=== PATIENT | male | born 1950 | race Caucasian/White ===

== ENCOUNTER 2016-04-11 17:49 | Inpatient (IN) | payer MEDICARE, OTHER ==
[~2016-04-11] VITALS: Ht 177.8 cm; Wt 60.8 kg
[~2016-04-11 17:49] MED LIST: AMOX1TAB64 PO; ASPI-496 PO; CYAN100028 PO; FLUT1AER INH; FLUT1BLS INH; GUAI100L11 PO; GUAI200T3 PO; IPRA4AER INH; LABE100T3 PO; LEVO500S PO; LISI5TAB7 PO; NICO1PAT10 TD; PRED20TA PO
[2016-04-11 18:29] LABS: HEMOGLOBIN 16.5 g/dL (13.7-18.0)
[2016-04-11 18:42] LABS: ASPARTATE AMINO TRANSFERASE 24 U/L (15-37); BLOOD UREA NITROGEN 8 mg/dL (7-18)
[2016-04-11 18:51] LABS: IS PT STATUS REG ER OR PRE ER? YES
[2016-04-11] MEDS ORDERED: SODIUM CHLORIDE 0.9% 1,000 ML IV ONE (21:18)
[2016-04-11 23:00] VITALS: BP 130/82
[2016-04-12] MEDS ORDERED: ACETAMINOPHEN 325 MG TABLET PO PRN
[2016-04-12] MEDS ORDERED: BISACODYL 10 MG SUPP PR PRN
[2016-04-12] MEDS ORDERED: NICOTINE 14MG/24 HR PATCH.TD24 TD SCH
[2016-04-12] MEDS ORDERED: NICOTINE 21 MG/24 HR PATCH.TD24 TD ONE
[2016-04-12] MEDS ORDERED: PROMETHAZINE 25 MG/ML, 1ML IM PRN
[2016-04-12] MEDS ORDERED: ONDANSETRON 2MG/ML, 2ML IVP PRN
[2016-04-12] MEDS ORDERED: POLYETHYLENE GLYCOL 17 GM PACKET PO PRN
[2016-04-12 00:32] LABS: BLOOD UREA NITROGEN 6 mg/dL (7-18)
[2016-04-12 00:44] LABS: IS PT STATUS REG ER OR PRE ER? NO
[2016-04-12] MEDS: OXYcodone IR 5MG TABLET PO PRN ×4 (00:46→17:44)
[2016-04-12] MEDS: ENOXAPARIN 40 MG/0.4 ML SQ SCH (00:46)
[2016-04-12] MEDS ORDERED: ALBUTEROL/IPRATROPIUM 2.5MG/0.5MG, 3 ML NPPB PRN (01:00)
[2016-04-12] MEDS ORDERED: THIAMINE 200 MG in SODIUM CHLORIDE 0.9% 50 ML IV ONE (01:30)
[2016-04-12] MEDS ORDERED: LORazepam 1MG TABLET PO PRN ×4 (01:30)
[2016-04-12] MEDS ORDERED: POTASSIUM CHLORIDE 20 MEQ in DEXTROSE 5% 1,000 ML IV SCH (01:30)
[2016-04-12] MEDS: CHLORDIAZEPOXIDE 25 MG CAPSULE PO SCH ×6 (01:40→20:05)
[2016-04-12 02:00] VITALS: BP 124/71
[2016-04-12 04:48] LABS: HEMOGLOBIN 15.9 g/dL (13.7-18.0)
[2016-04-12] MEDS: DIPHENHYDRAMINE/ZINC CRM 2%, 30GM TP PRN (04:49)
[2016-04-12 04:57] LABS: BLOOD UREA NITROGEN 8 mg/dL (7-18)
[2016-04-12 05:00] LABS: ASPARTATE AMINO TRANSFERASE 21 U/L (15-37)
[2016-04-12 07:08] VITALS: BP 107/68
[2016-04-12] MEDS ORDERED: FLUTICASONE/VILANTEROL 200-25MCG/INH INH SCH (09:00)
[2016-04-12 09:36] LABS: BLOOD UREA NITROGEN 8 mg/dL (7-18)
[2016-04-12] MEDS: THIAMINE 100MG TABLET PO SCH (09:36)
[2016-04-12] MEDS: MULTIVITAMIN 1 TABLET PO SCH (09:36)
[2016-04-12] MEDS: ASPIRIN 81 MG TABLET EC PO SCH (09:36)
[2016-04-12] MEDS: LABETALOL 100 MG TABLET PO SCH ×2 (09:36→20:05)
[2016-04-12] MEDS: FOLIC ACID 1 MG TABLET PO SCH (09:36)
[2016-04-12] MEDS: FLUTICASONE/VILANTEROL 200-25MCG/INH INH SCH (10:46)
[2016-04-12] MEDS: SODIUM CHLORIDE 0.9% 1,000 ML IV SCH ×2 (12:03→20:11)
[2016-04-12] MEDS ORDERED: LORazepam 1MG TABLET ONE ×2 (12:11→19:56)
[2016-04-12] MEDS: LORazepam 0.5MG TABLET PO PRN ×2 (12:13→20:05)
[2016-04-12 13:22] VITALS: BP 110/68
[2016-04-12 20:00] VITALS: BP 119/72
[2016-04-13 02:00] VITALS: BP 120/70
[2016-04-13] MEDS: SODIUM CHLORIDE 0.9% 1,000 ML IV SCH (03:30)
[2016-04-13 05:15] LABS: HEMOGLOBIN 13.7 g/dL (13.7-18.0)
[2016-04-13 05:24] LABS: BLOOD UREA NITROGEN 12 mg/dL (7-18)
[2016-04-13] MEDS: CHLORDIAZEPOXIDE 25 MG CAPSULE PO SCH ×4 (05:58→21:23)
[2016-04-13] MEDS: ENOXAPARIN 40 MG/0.4 ML SQ SCH (06:02)
[2016-04-13 06:59] VITALS: BP 135/78
[2016-04-13] MEDS: FLUTICASONE/VILANTEROL 200-25MCG/INH INH SCH (09:29)
[2016-04-13] MEDS: THIAMINE 100MG TABLET PO SCH (09:29)
[2016-04-13] MEDS: LABETALOL 100 MG TABLET PO SCH ×2 (09:29→21:23)
[2016-04-13] MEDS: MULTIVITAMIN 1 TABLET PO SCH (09:29)
[2016-04-13] MEDS: FOLIC ACID 1 MG TABLET PO SCH (09:29)
[2016-04-13] MEDS: ASPIRIN 81 MG TABLET EC PO SCH (09:29)
[2016-04-13] MEDS: OXYcodone IR 5MG TABLET PO PRN (09:30)
[2016-04-13] MEDS: PIPERONYL BUTOXIDE/PYRETHRINS SHAMPOO TP SCH (10:00)
[2016-04-13 12:59] VITALS: BP 143/82
[2016-04-13 13:30] VITALS: BP 103/58
[2016-04-13] MEDS: NICOTINE 14MG/24 HR PATCH.TD24 TD SCH (17:08)
[2016-04-13 20:45] VITALS: BP 146/70
[2016-04-14] MEDS: SODIUM CHLORIDE 0.9% 1,000 ML IV SCH ×4 (00:34→21:20)
[2016-04-14] MEDS: DIPHENHYDRAMINE/ZINC CRM 2%, 30GM TP PRN ×2 (00:34→21:20)
[2016-04-14 01:17] VITALS: BP 140/76
[2016-04-14] MEDS: CHLORDIAZEPOXIDE 25 MG CAPSULE PO SCH ×2 (04:52→11:54)
[2016-04-14] MEDS: ENOXAPARIN 40 MG/0.4 ML SQ SCH (04:54)
[2016-04-14 05:06] LABS: HEMOGLOBIN 13.5 g/dL (13.7-18.0)
[2016-04-14 05:15] LABS: BLOOD UREA NITROGEN 11 mg/dL (7-18)
[2016-04-14 08:28] VITALS: BP 135/78
[2016-04-14] MEDS ORDERED: PIPERONYL BUTOXIDE/PYRETHRINS SHAMPOO TP SCH (10:00)
[2016-04-14] MEDS: ASPIRIN 81 MG TABLET EC PO SCH (10:10)
[2016-04-14] MEDS: THIAMINE 100MG TABLET PO SCH (10:10)
[2016-04-14] MEDS: FOLIC ACID 1 MG TABLET PO SCH (10:10)
[2016-04-14] MEDS: MULTIVITAMIN 1 TABLET PO SCH (10:10)
[2016-04-14] MEDS: FLUTICASONE/VILANTEROL 200-25MCG/INH INH SCH (10:10)
[2016-04-14] MEDS: LABETALOL 100 MG TABLET PO SCH ×2 (10:10→21:18)
[2016-04-14] MEDS: OXYcodone IR 5MG TABLET PO PRN (10:11)
[2016-04-14] MEDS ORDERED: GUAIFENESIN/DM 200-20MG, 10ML UDC PO PRN (14:30)
[2016-04-14 15:23] VITALS: BP 140/71
[2016-04-14] MEDS: NICOTINE 14MG/24 HR PATCH.TD24 TD SCH (17:48)
[2016-04-14 18:51] VITALS: BP 158/87
[2016-04-15 01:56] VITALS: BP 117/62
[2016-04-15 05:07] LABS: BLOOD UREA NITROGEN 8 mg/dL (7-18)
[2016-04-15] MEDS: ENOXAPARIN 40 MG/0.4 ML SQ SCH (05:15)
[2016-04-15 08:20] VITALS: BP 161/83
[2016-04-15] MEDS: FLUTICASONE/VILANTEROL 200-25MCG/INH INH SCH (08:26)
[2016-04-15] MEDS: FOLIC ACID 1 MG TABLET PO SCH (08:27)
[2016-04-15] MEDS: LABETALOL 100 MG TABLET PO SCH ×2 (08:27→22:39)
[2016-04-15] MEDS: MULTIVITAMIN 1 TABLET PO SCH (08:27)
[2016-04-15] MEDS: ASPIRIN 81 MG TABLET EC PO SCH (08:27)
[2016-04-15] MEDS: THIAMINE 100MG TABLET PO SCH (08:27)
[2016-04-15] MEDS ORDERED: SODIUM CHLORIDE 0.9% 1,000 ML IV SCH (11:30)
[2016-04-15 12:58] VITALS: BP 144/85
[2016-04-15] MEDS: NICOTINE 14MG/24 HR PATCH.TD24 TD SCH (16:00)
[2016-04-15 18:53] VITALS: BP 136/76
[2016-04-15 22:38] VITALS: BP 160/83
[2016-04-16 01:41] VITALS: BP 155/90
[2016-04-16] MEDS: ENOXAPARIN 40 MG/0.4 ML SQ SCH (05:37)
[2016-04-16 05:44] LABS: HEMOGLOBIN 13.5 g/dL (13.7-18.0)
[2016-04-16 06:02] LABS: BLOOD UREA NITROGEN 9 mg/dL (7-18)
[2016-04-16 08:01] VITALS: BP 129/71
[2016-04-16] MEDS: MULTIVITAMIN 1 TABLET PO SCH (08:05)
[2016-04-16] MEDS: FLUTICASONE/VILANTEROL 200-25MCG/INH INH SCH (08:05)
[2016-04-16] MEDS: THIAMINE 100MG TABLET PO SCH (08:05)
[2016-04-16] MEDS: ASPIRIN 81 MG TABLET EC PO SCH (08:05)
[2016-04-16] MEDS: FOLIC ACID 1 MG TABLET PO SCH (08:05)
[2016-04-16] MEDS: LABETALOL 100 MG TABLET PO SCH ×2 (08:15→21:00)
[2016-04-16] MEDS: SODIUM CHLORIDE 1 GM TABLET PO SCH ×2 (10:27→21:13)
[2016-04-16] MEDS: AcetaZOLAMIDE INJ 500 MG IVPush SCH (10:27)
[2016-04-16 14:40] VITALS: BP 99/48
[2016-04-16] MEDS: NICOTINE 14MG/24 HR PATCH.TD24 TD SCH (16:00)
[2016-04-16 20:04] VITALS: BP 128/66
[2016-04-17 04:04] VITALS: BP 110/51
[2016-04-17] MEDS: ENOXAPARIN 40 MG/0.4 ML SQ SCH (05:38)
[2016-04-17 06:32] LABS: BLOOD UREA NITROGEN 12 mg/dL (7-18)
[2016-04-17 07:39] VITALS: BP 144/82
[2016-04-17] MEDS: OXYcodone IR 5MG TABLET PO PRN (08:42)
[2016-04-17] MEDS: MULTIVITAMIN 1 TABLET PO SCH (08:43)
[2016-04-17] MEDS: LABETALOL 100 MG TABLET PO SCH ×2 (08:43→20:09)
[2016-04-17] MEDS: THIAMINE 100MG TABLET PO SCH (08:43)
[2016-04-17] MEDS: AcetaZOLAMIDE INJ 500 MG IVPush SCH (08:43)
[2016-04-17] MEDS: SODIUM CHLORIDE 1 GM TABLET PO SCH ×2 (08:43→20:08)
[2016-04-17] MEDS: FLUTICASONE/VILANTEROL 200-25MCG/INH INH SCH (08:43)
[2016-04-17] MEDS: FOLIC ACID 1 MG TABLET PO SCH (08:43)
[2016-04-17] MEDS: ASPIRIN 81 MG TABLET EC PO SCH (08:43)
[2016-04-17 12:33] VITALS: BP 131/66
[2016-04-17] MEDS: NICOTINE 14MG/24 HR PATCH.TD24 TD SCH (16:43)
[2016-04-17 18:56] VITALS: BP 117/67
[2016-04-18 02:07] VITALS: BP 109/64
[2016-04-18] MEDS: ENOXAPARIN 40 MG/0.4 ML SQ SCH (05:16)
[2016-04-18] MEDS: OXYcodone IR 5MG TABLET PO PRN (05:26)
[2016-04-18 08:21] VITALS: BP 119/75
[2016-04-18] MEDS: FLUTICASONE/VILANTEROL 200-25MCG/INH INH SCH (09:00)
[2016-04-18] MEDS: LABETALOL 100 MG TABLET PO SCH ×2 (09:45→20:37)
[2016-04-18] MEDS: FOLIC ACID 1 MG TABLET PO SCH (09:45)
[2016-04-18] MEDS: MULTIVITAMIN 1 TABLET PO SCH (09:45)
[2016-04-18] MEDS: AcetaZOLAMIDE INJ 500 MG IVPush SCH (09:45)
[2016-04-18] MEDS: SODIUM CHLORIDE 1 GM TABLET PO SCH (09:45)
[2016-04-18] MEDS: ASPIRIN 81 MG TABLET EC PO SCH (09:45)
[2016-04-18] MEDS: THIAMINE 100MG TABLET PO SCH (09:45)
[2016-04-18] MEDS ORDERED: MULT1TAB60 PO (12:43)
[2016-04-18] MEDS ORDERED: THIA100T6 PO (12:43)
[2016-04-18] MEDS ORDERED: FOLI-17 PO (12:43)
[2016-04-18 13:01] VITALS: BP 116/65
[2016-04-18] MEDS: NICOTINE 14MG/24 HR PATCH.TD24 TD SCH (16:20)
[2016-04-18] MEDS: ATORVASTATIN 40 MG TABLET PO SCH (20:37)
[2016-04-18 21:05] VITALS: BP 141/84
[2016-04-19 04:12] VITALS: BP 153/79
[2016-04-19 05:06] LABS: HEMOGLOBIN 14.4 g/dL (13.7-18.0)
[2016-04-19 05:10] LABS: BLOOD UREA NITROGEN 14 mg/dL (7-18)
[2016-04-19] MEDS: ENOXAPARIN 40 MG/0.4 ML SQ SCH (06:32)
[2016-04-19 08:57] VITALS: BP 112/66
[2016-04-19] MEDS: FLUTICASONE/VILANTEROL 200-25MCG/INH INH SCH (08:58)
[2016-04-19] MEDS: THIAMINE 100MG TABLET PO SCH (08:58)
[2016-04-19] MEDS: FOLIC ACID 1 MG TABLET PO SCH (08:59)
[2016-04-19] MEDS: ASPIRIN 81 MG TABLET EC PO SCH (08:59)
[2016-04-19] MEDS: MULTIVITAMIN 1 TABLET PO SCH (08:59)
[2016-04-19] MEDS: LABETALOL 100 MG TABLET PO SCH ×2 (08:59→20:47)
[2016-04-19 09:45] VITALS: BP 133/76
[2016-04-19 12:35] VITALS: BP 115/56
[2016-04-19] MEDS: NICOTINE 14MG/24 HR PATCH.TD24 TD SCH (16:17)
[2016-04-19 19:03] VITALS: BP 133/63
[2016-04-19] MEDS: ATORVASTATIN 40 MG TABLET PO SCH (20:47)
[2016-04-20 01:50] VITALS: BP 131/65
[2016-04-20] MEDS: ENOXAPARIN 40 MG/0.4 ML SQ SCH (06:35)
[2016-04-20] MEDS: THIAMINE 100MG TABLET PO SCH (08:02)
[2016-04-20] MEDS: MULTIVITAMIN 1 TABLET PO SCH (08:02)
[2016-04-20] MEDS: LABETALOL 100 MG TABLET PO SCH ×2 (08:02→21:21)
[2016-04-20] MEDS: FOLIC ACID 1 MG TABLET PO SCH (08:03)
[2016-04-20] MEDS: FLUTICASONE/VILANTEROL 200-25MCG/INH INH SCH (08:03)
[2016-04-20] MEDS: ASPIRIN 81 MG TABLET EC PO SCH (08:03)
[2016-04-20 08:08] VITALS: BP 144/60
[2016-04-20] MEDS: PIPERONYL BUTOXIDE/PYRETHRINS SHAMPOO TP SCH (08:25)
[2016-04-20] MEDS ORDERED: PIPERONYL BUTOXIDE/PYRETHRINS SHAMPOO TP SCH (09:30)
[2016-04-20 12:44] VITALS: BP 131/78
[2016-04-20] MEDS: NICOTINE 14MG/24 HR PATCH.TD24 TD SCH (16:48)
[2016-04-20 19:50] VITALS: BP 131/74
[2016-04-20 19:55] VITALS: BP 131/74
[2016-04-20] MEDS: ATORVASTATIN 40 MG TABLET PO SCH (21:21)
[2016-04-20] MEDS: OXYcodone IR 5MG TABLET PO PRN (21:32)
[2016-04-20 23:23] VITALS: BP 139/77
[2016-04-21 03:50] VITALS: BP 147/77
[2016-04-21] MEDS: ENOXAPARIN 40 MG/0.4 ML SQ SCH (05:43)
[2016-04-21 07:53] VITALS: BP 132/74
[2016-04-21] MEDS: FLUTICASONE/VILANTEROL 200-25MCG/INH INH SCH (08:24)
[2016-04-21] MEDS: THIAMINE 100MG TABLET PO SCH (08:25)
[2016-04-21] MEDS: AMLODIPINE 5 MG TABLET PO SCH (08:25)
[2016-04-21] MEDS: MULTIVITAMIN 1 TABLET PO SCH (08:25)
[2016-04-21] MEDS: ASPIRIN 81 MG TABLET EC PO SCH (08:25)
[2016-04-21] MEDS: FOLIC ACID 1 MG TABLET PO SCH (08:25)
[2016-04-21] MEDS: LABETALOL 100 MG TABLET PO SCH ×2 (08:27→21:47)
[2016-04-21 14:00] VITALS: BP 142/78
[2016-04-21 20:20] VITALS: BP 118/68
[2016-04-21] MEDS: ATORVASTATIN 40 MG TABLET PO SCH (21:47)
[2016-04-21] MEDS: OXYcodone IR 5MG TABLET PO PRN (21:47)
[2016-04-21] MEDS: NICOTINE 14MG/24 HR PATCH.TD24 TD SCH (21:47)
[2016-04-21 21:48] VITALS: BP 125/64
[2016-04-22 02:50] VITALS: BP 150/67
[2016-04-22] MEDS: ENOXAPARIN 40 MG/0.4 ML SQ SCH (06:04)
[2016-04-22 07:07] VITALS: BP 165/74
[2016-04-22] MEDS: FOLIC ACID 1 MG TABLET PO SCH (08:08)
[2016-04-22] MEDS: FLUTICASONE/VILANTEROL 200-25MCG/INH INH SCH (08:08)
[2016-04-22] MEDS: AMLODIPINE 5 MG TABLET PO SCH (08:08)
[2016-04-22] MEDS: ASPIRIN 81 MG TABLET EC PO SCH (08:08)
[2016-04-22] MEDS: MULTIVITAMIN 1 TABLET PO SCH (08:08)
[2016-04-22] MEDS: THIAMINE 100MG TABLET PO SCH (08:09)
[2016-04-22] MEDS: LABETALOL 100 MG TABLET PO SCH ×2 (08:09→21:19)
[2016-04-22 12:50] VITALS: BP 134/72
[2016-04-22 19:24] VITALS: BP 127/71
[2016-04-22] MEDS: NICOTINE 14MG/24 HR PATCH.TD24 TD SCH (21:19)
[2016-04-22] MEDS: ATORVASTATIN 40 MG TABLET PO SCH (21:19)
[2016-04-22] MEDS: OXYcodone IR 5MG TABLET PO PRN (21:25)
[2016-04-23 02:51] VITALS: BP 160/87
[2016-04-23] MEDS: ENOXAPARIN 40 MG/0.4 ML SQ SCH (05:05)
[2016-04-23 06:57] VITALS: BP 155/71
[2016-04-23] MEDS: FOLIC ACID 1 MG TABLET PO SCH (09:27)
[2016-04-23] MEDS: THIAMINE 100MG TABLET PO SCH (09:27)
[2016-04-23] MEDS: FLUTICASONE/VILANTEROL 200-25MCG/INH INH SCH (09:27)
[2016-04-23] MEDS: AMLODIPINE 5 MG TABLET PO SCH (09:27)
[2016-04-23] MEDS: ASPIRIN 81 MG TABLET EC PO SCH (09:27)
[2016-04-23] MEDS: MULTIVITAMIN 1 TABLET PO SCH (09:27)
[2016-04-23] MEDS: LABETALOL 100 MG TABLET PO SCH ×2 (09:27→22:56)
[2016-04-23 12:50] VITALS: BP 144/76
[2016-04-23 19:08] VITALS: BP 122/62
[2016-04-23] MEDS: ATORVASTATIN 40 MG TABLET PO SCH (22:56)
[2016-04-23] MEDS: NICOTINE 14MG/24 HR PATCH.TD24 TD SCH (22:56)
[2016-04-24 01:33] VITALS: BP 152/67
[2016-04-24] MEDS: OXYcodone IR 5MG TABLET PO PRN (04:17)
[2016-04-24] MEDS: ENOXAPARIN 40 MG/0.4 ML SQ SCH (05:54)
[2016-04-24 07:20] VITALS: BP 162/53
[2016-04-24] MEDS: FLUTICASONE/VILANTEROL 200-25MCG/INH INH SCH (08:38)
[2016-04-24] MEDS: MULTIVITAMIN 1 TABLET PO SCH (08:38)
[2016-04-24] MEDS: LABETALOL 100 MG TABLET PO SCH (08:38)
[2016-04-24] MEDS: ASPIRIN 81 MG TABLET EC PO SCH (08:38)
[2016-04-24] MEDS: FOLIC ACID 1 MG TABLET PO SCH (08:38)
[2016-04-24] MEDS: THIAMINE 100MG TABLET PO SCH (08:38)
[2016-04-24] MEDS: AMLODIPINE 5 MG TABLET PO SCH (08:38)
[2016-04-24 13:25] VITALS: BP 127/77
== END 2016-04-24 15:06 | DRG 895 ==
LOC: ED 21:53 → EDIP 21:55 → 4WST 23:41
PROVIDERS: ADMIT Internal Medicine; ATTEND Internal Medicine
PROC: HZ34ZZZ Individual Counseling for Substance Abuse Treatment, Interpersonal (ICD-10-PCS; principal; 2016-04-11)
PROC: HZ2ZZZZ Detoxification Services for Substance Abuse Treatment (ICD-10-PCS; 2016-04-11)
DX: F10.239 Alcohol dependence with withdrawal, unspecified (principal); E87.1 Hypo-osmolality and hyponatremia; J98.11 Atelectasis; W18.30XA Fall on same level, unspecified, initial encounter; J44.9 Chronic obstructive pulmonary disease, unspecified; F17.210 Nicotine dependence, cigarettes, uncomplicated; I11.0 Hypertensive heart disease with heart failure; I50.9 Heart failure, unspecified; D75.89 Other specified diseases of blood and blood-forming organs; B85.2 Pediculosis, unspecified; K80.20 Calculus of gallbladder without cholecystitis without obstruction; Z59.0 Homelessness; Z99.81 Dependence on supplemental oxygen; Z86.73 Personal history of transient ischemic attack (TIA), and cerebral infarction without residual deficits; Z87.01 Personal history of pneumonia (recurrent); Z71.41 Alcohol abuse counseling and surveillance of alcoholic; I10 Essential (primary) hypertension
CPT/HCPCS: 36415; 70450; 70486; 71010; 72125; 80048; 80053; 83735; 83880; 84484; 85025; 93005; 96360; J1650; J3411; J3480; J7070; J1120; J7030